=== PATIENT | male | born 1950 | race Caucasian/White ===

== ENCOUNTER 2017-06-09 06:00 | Day surgery (SDC) | payer MEDICARE, OTHER ==
[~2017-06-09] VITALS: Ht 182.9 cm; Wt 113.4 kg
[~2017-06-09 06:00] MED LIST: AMBIEN10 MG PO; ASPIRIN EC81 MG PO; CLONAZEPAM0.5 MG PO; DIPHENHYDRAMINE25 MG PO; LAMICTAL25 MG PO; LEVOTHYROXINE25 MCG PO; LIPITOR20 MG PO; LISINOPRIL10 MG PO; LITHIUM CARBON300 M1 PO; OMEPRAZOLE20 MG PO; PRAZOSIN HCL1 MG PO; SEROQUEL50 MG PO; TAMSULOSIN HCL0.4 MG PO
--- NOTE | 2017-06-09 08:16 | NUR ---
06/09/17 0816 Lashanda Rooney REPORT FROM DEPUTY OF COUNTER INTELLIGENCE.
--- NOTE | 2017-06-09 20:40 | EKG ---
[facility] [address] [facility] [place], [place] [address] Signed Sinus rhythm with sinus arrhythmia with 1st degree AV block Otherwise normal ECG No previous ECGs available Confirmed by EITAN EARLY MD ([id number]) on 06/09/2017 8:39:51 PM Electronically Signed By: EITAN EARLY MD 06/09/170 PATIENT NAME: BETHANY JIMENEZ Electrocardiogram DATE OF : 52 PHYSICIAN: EITAN EARLY MD REPORT #: [id number] REPORT IS CONFIDENTIAL AND NOT TO BE RELEASED WITHOUT AUTHORIZATION
--- NOTE | 2017-06-21 10:25 | OR ---
[facility] [address] [place], [place] [address] Signed DATE OF SERVICE: 06/09/2017 PREOPERATIVE DIAGNOSIS: History of multiple polyps. POSTOPERATIVE DIAGNOSES: Single polyp at cecum. Diverticulosis of sigmoid. PROCEDURE: Total colonoscopy to cecum and hot snare polypectomy x1. SURGEON: Missy Brower MD. ANESTHESIA: Intravenous sedation, propofol infusion (Sherin Wiggins CRNA). INDICATION: This 66-year-old white man is a patient Dr. Rodriguez and well known to me from the past. Last year he underwent colonoscopy where he was found to have 5 polyps, 4 of them were tubular adenomas. Short-term followup for polyp surveillance was recommended. He understands the risks of bleeding, infection, and perforation related to colonoscopy and wished to proceed. FINDINGS: The prep was good. Complete colonoscopy was undertaken to the cecum. There was 1 polyp at the cecum, which was excised with hot snare polypectomy technique. The remaining colon was normal except for diverticular changes of the sigmoid. PROCEDURE: The patient was brought to the endoscopy suite and placed in lateral decubitus position. Given intravenous sedation to a point of slurred speech and nystagmus. Digital rectal examination was normal. An Olympus video colonoscope was passed in the rectum and manipulated throughout the colon and ultimately intubating the cecum itself. The ileocecal valve was normal. There was a small polyp, which was likely adenomatous based on narrow band imaging and this was excised with hot snare polypectomy technique without problem. Specimen was passed for pathology. The scope was withdrawn from that point and examination throughout showed no sign of abnormality other than a few diverticula of the sigmoid. Retroflexed view in the rectum was normal. Scope was removed. The patient was taken to recovery room in good condition. Electronically Signed By: MISSY BROWER MD 06/21/17 1025 PATIENT NAME: BETHANY JIMENEZ OPERATIVE REPORT DATE OF : 52 PHYSICIAN: MISSY BROWER MD REPORT #: [id number] REPORT IS CONFIDENTIAL AND NOT TO BE RELEASED WITHOUT AUTHORIZATION [address] [address] Signed CONCLUDING DIAGNOSIS: Single polyp of cecum. PLAN: Recommend repeat colonoscopy in 3 to 5 years or sooner if clinically indicated. MD TYLOR Rowladn/George /[id number] Electronically Signed By: MISSY BROWER MD 06/21/17 1025 PATIENT NAME: BETHANY JIMENEZ OPERATIVE REPORT DATE OF : 52 PHYSICIAN: MISSY BROWER MD REPORT #: [id number] REPORT IS CONFIDENTIAL AND NOT TO BE RELEASED WITHOUT AUTHORIZATION
== END 2017-06-09 09:00 | disposition home or self-care (01) ==
LOC: OPS 06:00 → DS 06:00 → OPS 06:45 → DS 06:45 → OPS 09:00
PROVIDERS: Surgery
PROC: 0DBH8ZX Excision of Cecum, Via Natural or Artificial Opening Endoscopic, Diagnostic (ICD-10-PCS; principal; 2017-06-09 06:45)
DX: Z12.11 Encounter for screening for malignant neoplasm of colon (principal); D12.0 Benign neoplasm of cecum; K57.30 Diverticulosis of large intestine without perforation or abscess without bleeding; K21.9 Gastro-esophageal reflux disease without esophagitis; E78.00 Pure hypercholesterolemia, unspecified; I10 Essential (primary) hypertension; G47.30 Sleep apnea, unspecified; Z86.010 Personal history of colon polyps; Z87.891 Personal history of nicotine dependence; Z86.718 Personal history of other venous thrombosis and embolism; Z86.73 Personal history of transient ischemic attack (TIA), and cerebral infarction without residual deficits; Z88.2 Allergy status to sulfonamides; Z88.5 Allergy status to narcotic agent; Z98.52 Vasectomy status; Z90.89 Acquired absence of other organs; Z98.890 Other specified postprocedural states
CPT/HCPCS: 00810; 88305; 93005; 93010; J2250; J2704; J3010; J7120

== ENCOUNTER 2020-07-20 07:35 | Day surgery (SDC) | payer MEDICARE, OTHER ==
[~2020-07-20] VITALS: Ht 182.9 cm; Wt 108.9 kg
[~2020-07-20 07:35] MED LIST changes: +8 HOUR650 MG PO; +CLINPRO 5000113 GM MT; +CLOBETASOL PROP50 G1 TOP; +DOK100 MG PO; -LISINOPRIL10 MG PO; +LITHIUM CARBON150 MG PO; -LITHIUM CARBON300 M1 PO; +ZESTRIL20 MG PO
--- NOTE | 2020-07-20 09:20 | NUR ---
PT PROVIDED WITH WARM BLANKETS. NO OTHER REQUESTS. PT PATIENTLY WAITING FOR HIS SCHEDULED PROCEDURE
--- NOTE | 2020-07-20 11:10 | NUR ---
PT ALERT, ORIENTED AND SEEMS AT EASE WITH TODAY'S PROCEDURE. RN ALESHA IN TO COMPLETE PREP FOR PT, EXTENDED A BLESSING WILL FOLLOW
--- NOTE | 2020-07-20 13:19 | NUR ---
07/20/20 1319 Kristi Cook 1315-PATIENT ARRIVED TO PACU ON 10 L MASK NONAROUSABLE ORAL AIRWAY IN PLACE LAYING LEFT LATERAL. RR EVEN. IVF INFUSING. PATIENT PLACED ON 6L MASK ABDOMEN ROUND. SR
--- NOTE | 2020-07-20 18:32 | OR ---
[facility] [address] [place], [place] [address] Signed DATE OF OPERATION: 07/20/2020 SURGEON: Missy Brower MD PREOPERATIVE DIAGNOSES: 1. History of colon polyps. 2. 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 POSTOPERATIVE DIAGNOSES: Small polyp at 90 cm, excised. PROCEDURE: Total colonoscopy to cecum with cold morcellation polypectomy x1. ANESTHESIA: Intravenous sedation, propofol infusion; Missy August CRNA. INDICATION: This 69-year-old white man is a patient of JAYSON Lowe. He has undergone colonoscopy by me in the past showing polyps. Last colonoscopy in May of 2017 showed a tubular adenoma. He is free of colonic symptoms at this time and is here to undergo surveillance colonoscopy. He has no family history of colon cancer. He is admitted to undergo colonoscopy. He understands the risks of bleeding, infection, perforation, and so on. FINDINGS: An adequate prep was noted, but fair amount of irrigation was required for thorough evaluation. Complete colonoscopy was undertaken to the cecum. He had a small linear shaped polyp at 90 cm, which was excised with cold morcellation technique. There were no other polyps noted. DESCRIPTION OF PROCEDURE: The patient was brought to the endoscopy suite and placed in lateral decubitus position, given intravenous sedation with propofol infusional technique by the wet end supervisor. Digital rectal examination was normal. An Olympus video colonoscope was passed in the rectum and manipulated throughout the colon. There was some residual gelatinous stool which required irrigation throughout. The scope was ultimately passed to the cecum, which was normal. The ileocecal valve was Electronically Signed By: MISSY BROWER MD 07/20/20 1832 PATIENT NAME: BETHANY JIMENEZ OPERATIVE REPORT DATE OF : 52 REPORT #: [id number] PHYSICIAN: MISSY BROWER MD PCP: ORQUIDEA SAM PA-C REPORT IS CONFIDENTIAL AND NOT TO BE RELEASED WITHOUT AUTHORIZATION [facility] [address] [place] [id number] Signed normal as well. The scope was withdrawn from that point. Examination carefully undertaken showed no sign of abnormality until approximately 90 cm. This was excised with cold morcellation technique completely. Further withdrawal of scope showed no sign of other abnormality. Retroflexed view was normal except for internal hemorrhoids. The patient tolerated procedure well, was taken to the recovery room in good condition. CONCLUDING DIAGNOSIS: Polyp at 90 cm, excised. PLAN: Recommend a repeat colonoscopy in 3 years sooner if clinically indicated. MD TYLOR Rowland/LIANAL /[id number] cc: Orquidea Sam PA-C Copies: ORQUIDEA SAM PA-C ~ Electronically Signed By: MISSY BROWER MD 07/20/20 1832 PATIENT NAME: BETHANY JIMENEZ OPERATIVE REPORT DATE OF : 52 REPORT #: [id number] PHYSICIAN: MISSY BROWER MD PCP: ORQUIDEA SAM PA-C REPORT IS CONFIDENTIAL AND NOT TO BE RELEASED WITHOUT AUTHORIZATION
== END 2020-07-20 13:55 | disposition home or self-care (01) ==
LOC: DS 07:35 → OPS 07:35 → DS 08:45 → OPS 08:45
PROVIDERS: ATTEND Surgery
PROC: 0DBE8ZZ Excision of Large Intestine, Via Natural or Artificial Opening Endoscopic (ICD-10-PCS; principal; 2020-07-20 08:45)
DX: Z12.11 Encounter for screening for malignant neoplasm of colon (principal); D12.6 Benign neoplasm of colon, unspecified; F32.9 Major depressive disorder, single episode, unspecified; I10 Essential (primary) hypertension; K21.9 Gastro-esophageal reflux disease without esophagitis; G47.30 Sleep apnea, unspecified; Z86.010 Personal history of colon polyps; Z91.018 Allergy to other foods; Z88.2 Allergy status to sulfonamides; Z88.8 Allergy status to other drugs, medicaments and biological substances; Z79.899 Other long term (current) drug therapy; Z87.891 Personal history of nicotine dependence; Z86.73 Personal history of transient ischemic attack (TIA), and cerebral infarction without residual deficits
CPT/HCPCS: 88305; J2704